=== PATIENT | male | born 1985 | race Caucasian/White ===

== ENCOUNTER 2021-09-29 18:52 | Emergency (ER) | payer OTHER ==
[2021-09-29 20:02] LABS: HEMOGLOBIN 15.9 gm/dl (14.0-17.5); RED BLOOD COUNT 4.75 M/UL (4.20-5.50); WHITE BLOOD COUNT 7.9 K/UL (4.5-11.0)
[2021-09-29 20:37] LABS: BUN/CREATININE RATIO 13 (0-10)
== END 2021-09-29 21:47 | disposition home or self-care (01) ==
LOC: ER1 18:52
PROVIDERS: Family Medicine
DX: S69.91XA Unspecified injury of right wrist, hand and finger(s), initial encounter (principal); F17.200 Nicotine dependence, unspecified, uncomplicated; F10.10 Alcohol abuse, uncomplicated; Y90.6 Blood alcohol level of 120-199 mg/100 ml; Z20.822 Contact with and (suspected) exposure to COVID-19
CPT/HCPCS: 71046; 73130; 80053; 82550; 82553; 83735; 84100; 84484; 85025; 94664; 99284; G0480; U0002

== ENCOUNTER 2021-10-14 21:55 | Emergency (ER) | payer OTHER | END 2021-10-14 23:00 | disposition left against medical advice (07) | LOC: ER1 21:55 | DX: M79.641 Pain in right hand (principal); Z88.0 Allergy status to penicillin; F17.210 Nicotine dependence, cigarettes, uncomplicated; W22.8XXA Striking against or struck by other objects, initial encounter | CPT/HCPCS: 99283 ==